=== PATIENT | female | born 1975 | race Caucasian/White ===

== ENCOUNTER 2020-05-26 13:45 | Emergency (ER) | payer OTHER ==
[~2020-05-26] VITALS: Ht 152.4 cm; Wt 87.1 kg
[2020-05-26 13:59] VITALS: BP 148/79; Ht 152.4 cm; Wt 87.1 kg
== END 2020-05-26 16:15 | disposition home or self-care (01) ==
LOC: ED 13:45
DX: S83.92XA Sprain of unspecified site of left knee, initial encounter (principal); S60.221A Contusion of right hand, initial encounter; E11.9 Type 2 diabetes mellitus without complications; W01.0XXA Fall on same level from slipping, tripping and stumbling without subsequent striking against object, initial encounter; Y93.89 Activity, other specified; Y92.89 Other specified places as the place of occurrence of the external cause; Y99.8 Other external cause status